=== PATIENT | female | born 1940 | race Caucasian/White ===

== ENCOUNTER 2018-02-21 07:49 | Day surgery (SDC) | payer OTHER ==
[2018-02-18 13:22] VITALS: BMI 25.0
[2018-02-21 09:47] VITALS: TEMP 97.4
[2018-02-21 16:34] VITALS: BP 138/57; PULSE 74
--- NOTE | 2018-02-22 18:55 | PATH ---
Surgical Pathology Report Patient Name: HAYDEN PARKS [facility]. Rec. #: [id number] /Age/Gender: 1940 (Age: 77) / F Account: [id number] Location: U-ENDOSCOPY Taken: 02/21/2018 Received: 02/21/2018 Reported: 02/22/2018 Physicians: Lauren Carreon M.D. Specimen(s) Received A: BX DUODENUM POLYP B: BX 2ND PORTION DUODENUM AND DUODENAL BULB C: BX ANTRUM Clinical History Anemia, adenoma surveillance Postoperative diagnosis: Duodenal polyp, AVM cecum, diverticulosis Final Diagnosis A. 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 B. DUODENUM, SECOND PORTION AND BULB, BIOPSY: DUODENAL MUCOSA WITH MILD CHRONIC DUODENITIS AND CHIRAG'S GLAND HYPERPLASIA. C. STOMACH ANTRUM, BIOPSY: GASTRIC ANTRAL MUCOSA WITH MODERATE CHRONIC GASTRITIS. IMMUNOHISTOCHEMICAL STAIN FOR H. PYLORI IS NEGATIVE. Electronically Signed Estrellita Feliz M.D. Gross Description A. Received in formalin, labeled "polyp duodenum biopsy" are 4 lugo, irregular portions of soft tissue ranging from 0.3-0.5 cm. in greatest dimension. The specimens are submitted in toto in one cassette. B. Received in formalin, labeled "second portion of duodenum and bulb biopsy" are 4 lugo, irregular portions of soft tissue ranging from 0.1-0.4 cm. in greatest dimension. The specimens are submitted in toto in one cassette. C. Received in formalin, labeled "antrum biopsy" are 4 lugo, irregular portions of soft tissue ranging from 0.3-0.5 cm. in greatest dimension. The specimens are submitted in toto in one cassette. DL/02/21/2018 saudi02/21/2018
== END 2018-02-21 11:40 | disposition home or self-care (01) ==
LOC: JASU-ENDO 07:49
PROVIDERS: ATTEND Internal Medicine Gastroenterology
PROC: 0DB98ZX Excision of Duodenum, Via Natural or Artificial Opening Endoscopic, Diagnostic (ICD-10-PCS; 2018-02-21)
PROC: 0DB68ZX Excision of Stomach, Via Natural or Artificial Opening Endoscopic, Diagnostic (ICD-10-PCS; 2018-02-21)
PROC: 0DJD8ZZ Inspection of Lower Intestinal Tract, Via Natural or Artificial Opening Endoscopic (ICD-10-PCS; principal; 2018-02-21 09:00)
DX: Z12.11 Encounter for screening for malignant neoplasm of colon (principal); Z86.010 Personal history of colon polyps; D64.9 Anemia, unspecified; K55.20 Angiodysplasia of colon without hemorrhage; K64.8 Other hemorrhoids; K57.30 Diverticulosis of large intestine without perforation or abscess without bleeding; K31.7 Polyp of stomach and duodenum
CPT/HCPCS: 43239; G0105; 82962; 88305-TC; 88342-TC

== ENCOUNTER 2018-12-01 07:22 | Day surgery (SDC) | payer OTHER ==
[2018-11-30 16:08] VITALS: BMI 22.8
[2018-12-01] MEDS ORDERED: LIDOCAINE HCL 1%, 10 MG/ML (20ML VIAL) ONE (08:11)
[2018-12-01] MEDS ORDERED: HEPARIN NA (PORCINE) 5,000 UNITS/ML 1ML VIAL ONE ×2 (08:11→09:27)
[2018-12-01] MEDS ORDERED: PROPOFOL 20 ML ONE ×2 (09:00→09:52)
[2018-12-01] MEDS ORDERED: MIDAZOLAM HCL 2 MG/2 ML SINGLE DOSE VIAL ONE (09:01)
[2018-12-01] MEDS ORDERED: ceFAZolin SODIUM 1 GM VIAL ONE (09:11)
[2018-12-01] MEDS ORDERED: LIDOCAINE HCL 1%, 10 MG/ML (50 mL VIAL) IJ ONE ×2 (09:25)
--- NOTE | 2018-12-01 10:17 | HP ---
Admitting History and Physical - Admission Chief Complaint: RLE claudication for less than 2 blocks - Past Medical History Cardiovascular: Yes: HTN Endocrine: Yes: Diabetes Mellitus - Past Surgical History Past Surgical History: Yes: Cystectomy, Tonsillectomy - Smoking History Smoking history: Former smoker Have you smoked in the past 12 months: No If you are a former smoker, when did you quit?: 2000 - Alcohol/Substance Use Hx Alcohol Use: Yes (SOCIALLY) Home Medications - Allergies Allergies/Adverse Reactions: Allergies Allergy/AdvReac Type Severity Reaction Status Date / Time ibuprofen [From Advil] Allergy Severe facial Verified 11/30/18 16:09 swelling and orbital edema - Home Medications Home Medications: Ambulatory Orders Alendronate Na [Fosamax (Weekly)] 70 mg PO Q7D 08/02/17 B12/Iodin/Mag/Zinc/Rayne/[id number] [Adrenoid Capsule] 1 each PO DAILY 08/02/17 Empagliflozin [Jardiance] 25 mg PO DAILY 08/02/17 Levothyroxine [Synthroid -] 88 mcg PO DAILY 08/02/17 Grayson-3S/Dha/Epa/Fish Oil [Fish Oil 1,200 mg Softgel] 1 cap PO DAILY 08/02/17 Ramipril 5 mg PO BID 08/02/17 Rosuvastatin Calcium [Crestor] 5 mg PO HS 08/02/17 Saxagliptin HCl [Onglyza] 5 mg PO DAILY 08/02/17 metFORMIN HCL [Metformin HCl] 850 mg PO TID 08/02/17 Calcium Carbonate/Vitamin D3 [Calcium 600-Vit D3 200 Tablet] 1 each PO BID 02/18 Vitamin E 400 unit PO DAILY 02/18/18 Glipizide 5 mg PO BID 02/21/18 Ascorbic Acid [Vitamin C -] 500 mg PO DAILY 06/13/18 Ferrous Sulfate [Feosol] 325 mg PO DAILY 06/13/18 Review of Systems - Review of Systems Constitutional: reports: No Symptoms Eyes: reports: No Symptoms HENT: reports: No Symptoms Neck: reports: No Symptoms Cardiovascular: reports: No Symptoms Respiratory: reports: No Symptoms Gastrointestinal: reports: No Symptoms Genitourinary: reports: No Symptoms Musculoskeletal: reports: No Symptoms Integumentary: reports: No Symptoms Neurological: reports: No Symptoms Endocrine: reports: No Symptoms Hematology/Lymphatic: reports: No Symptoms Psychiatric: reports: No Symptoms Physical Examination Vital Signs: Vital Signs Temperature 97.7 F 12/01/18 07:36 Pulse Rate 82 12/01/18 07:36 Respiratory Rate 16 12/01/18 07:36 Blood Pressure 145/80 12/01/18 07:36 O2 Sat by Pulse Oximetry (%) 96 12/01/18 07:36 Constitutional: Yes: Well Nourished, No Distress, Calm Eyes: Yes: WNL, Conjunctiva Clear, EOM Intact HENT: Yes: WNL, Atraumatic, Normocephalic Neck: Yes: WNL, Supple, Trachea Midline Cardiovascular: Yes: WNL, Regular Rate and Rhythm Respiratory: Yes: WNL, Regular, CTA Bilaterally Gastrointestinal: Yes: WNL, Normal Bowel Sounds Musculoskeletal: Yes: WNL Extremities: Yes: WNL Edema: No Peripheral Pulses WNL: No Integumentary: Yes: WNL Neurological: Yes: WNL, Alert, Oriented ...Motor Strength: WNL Psychiatric: Yes: WNL Problem List - Problems (1) Claudication of right lower extremity Assessment/Plan: for right iliac artery angiogram today Code(s): I73.9 - PERIPHERAL VASCULAR DISEASE, UNSPECIFIED
--- NOTE | 2018-12-01 10:19 | OP ---
Operative Note - Note: Operative Date: 12/01/18 Pre-Operative Diagnosis: RLE claudication Operation: Aortogram, RLE angiogram Findings: Aortic disease with calcium. Origin of right common iliac is open after manipulation Post-Operative Diagnosis: Same as Pre-op Surgeon: Ramsey Huffman Anesthesia: Fractional Estimated Blood Loss (mls): 50 Operative Report Dictated: Yes
[2018-12-01] MEDS ORDERED: LABETALOL HCL 5 MG/1 ML (100MG/20 ML VIAL) IVPUSH ONE ×3 (11:15→12:34)
[2018-12-01] MEDS ORDERED: LACTATED RINGERS SOLUTION 1,000 ML IV SCH (11:30)
[2018-12-01] MEDS ORDERED: ACETAMINOPHEN INJECTION 100 ML IVPB ONE (11:42)
[2018-12-01] MEDS ORDERED: ACETAMINOPHEN 1000 MG/100 ML VIAL (NON FORMULARY) IVPB ONE (11:48)
--- NOTE | 2018-12-01 13:21 | OP ---
DATE OF OPERATION: 12/01/2018 PREOPERATIVE DIAGNOSIS: Right lower extremity claudication. POSTOPERATIVE DIAGNOSIS: Right lower extremity claudication. PROCEDURE: Aortogram, right lower extremity angiogram. SURGEON: Ramsey Fuentes DO ANESTHESIA: Fractional. BLOOD LOSS: 50 mL. INDICATIONS: Patient is a 78-year-old female who has less than 2 block claudication. CTA in 2018 showed a 70%-90% stenosis in the right common iliac artery origin and with severe calcification in the aorta. Last year we tried to cross the lesion, and we were unsuccessful. She now continues to have these complaints, and we decided that we would do another angiogram. Patient was cleared from medical and cardiology standpoint. Patient came in in through ambulatory surgery. Patient was consented for the procedure understanding all risks, benefits, alternatives then taken to the operating room. DESCRIPTION OF PROCEDURE: Once in the operating room, was laid on the operating room table in supine manner. The area of the right and left groin were prepped and draped in a sterile surgical manner. We then under ultrasound guidance visualized right common femoral artery. Lidocaine 10 mL 1% was injected there. We then took our micropuncture needle and punctured the right common femoral artery. Micropuncture wire was inserted. Micropuncture sheath was inserted, and a 5-[place] sheath was inserted. We then placed a 0.035 floppy guidewire up to the occlusion in the common iliac artery. We then went ahead and placed a 7-[place] Destination sheath up to that point. We then went ahead and used a Quick-Cross catheter, and we were able to cross our common iliac lesion. However, once we got into the aorta, we were not in the right plane as we were dissecting due to the severe calcification in the aorta. We then shot an angiogram via hand injection showing that due to manipulation and bringing our Destination sheath across the lesion, we were able to open the origin of the common iliac artery, and it was opened with probably may be 30% stenosis. We then took an angiogram of the right lower extremity from the iliac artery, and there was good flow all the way down into the foot. At this point, due to the fact that we were subintimal into the aorta, we decided that no more intervention was needed, and the right common iliac artery origin was now patent with may be about 30% stenosis. This should help the patient. At this point, no more intervention was needed. We brought our sheath back, and StarClose device was successfully deployed in the right common femoral artery. Pressure was held for 5 minutes. After there was no more bleeding, the area was wet and dried, and Dermabond was placed. Patient tolerated the procedure well with no complications. Patient transferred to the PACU in stable condition. RAMSEY FUENTES DO [id number]
[2018-12-01 13:51] VITALS: TEMP 98.2
[2018-12-01 14:05] VITALS: BP 122/61; PULSE 89
== END 2018-12-01 13:30 | disposition home or self-care (01) ==
LOC: JASU-SURG 07:22
PROVIDERS: ATTEND Surgery Vascular Surgery
PROC: B41DYZZ Fluoroscopy of Aorta and Bilateral Lower Extremity Arteries using Other Contrast (ICD-10-PCS; principal; 2018-12-01 09:00)
DX: I70.211 Atherosclerosis of native arteries of extremities with intermittent claudication, right leg (principal)
CPT/HCPCS: 75710-TC-FY; 76000-TC-FY; 82962; 94760; J0131; J1644